=== PATIENT | female | born 2000 | race Caucasian/White ===

== ENCOUNTER 2021-07-26 16:33 | Inpatient (IN) | payer BC ==
[~2021-07-26] VITALS: Ht 165.1 cm; Wt 64.0 kg
[2021-07-26 17:15] LABS: BASOPHILS % (AUTO) 0.4 % (0.0-2.0); EOSINOPHILS % (AUTO) 0.8 % (1.0-6.0); HEMATOCRIT 39.5 % (36-46); HEMOGLOBIN 13.6 g/dL (12.0-16.0); LYMPHOCYTES # (AUTO) 1.9 K/uL (1.0-4.8); LYMPHOCYTES % (AUTO) 29.8 % (22.0-44.0); MEAN CORPUSCULAR HEMOGLOBIN 27.3 pg (26.0-34.0); MEAN CORPUSCULAR HGB CONC 34.3 G/dL (31.0-37.0); MEAN CORPUSCULAR VOLUME 80 fL (80-100); MONOCYTES # (AUTO) 0.4 K/uL (0.1-1.0); MONOCYTES % (AUTO) 5.6 % (2.0-9.0); NEUTROPHILS % (AUTO) 63.4 % (40.0-70.0); PLATELET COUNT (AUTO) 245 K/uL (150-450); RED BLOOD CELL COUNT(AUTO) 4.97 MIL/uL (4.00-5.20); RED CELL DISTRIBUTION WIDTH 13.2 % (11.5-14.5)
[2021-07-26 17:21] LABS: ANION GAP 11 mmol/L (8-16); CALCIUM, TOTAL 9.1 mg/dL (8.8-10.5); CARBON DIOXIDE 24 mmol/L (22-29); CHLORIDE 103 mmol/L (98-107); CREATININE 0.76 mg/dL (0.60-1.30); GLOMERULAR FILTR. RATE CALC > 60 mL/min (>60); GLUCOSE,RANDOM 178 mg/dL (70-110); POTASSIUM 3.9 mmol/L (3.5-5.1); SODIUM SERUM 138 mmol/L (136-145); UREA NITROGEN, BLOOD 9 mg/dL (7-18)
[2021-07-26 17:27] LABS: ALANINE AMINOTRANSFERASE 16 U/L (12-78); ALBUMIN 3.9 g/dL (3.4-5.0); ALKALINE PHOSPHATASE 90 U/L (46-116); ASPARTATE AMINOTRANSFERASE 15 U/L (15-37); BILIRUBIN,TOTAL 0.6 mg/dL (0.1-1.0); TOTAL PROTEIN, SERUM 7.7 g/dL (6.4-8.2)
[2021-07-26] MEDS ORDERED: ZOLPIDEM TARTRATE 10 MG TABLET PO PRN (21:00)
[2021-07-26] MEDS ORDERED: LORazepam 2 MG TABLET PO PRN (21:00)
[2021-07-26] MEDS ORDERED: HALOPERIDOL 5 MG TABLET PO PRN (21:00)
[2021-07-26 21:24] LABS: COVID AG,FIA SOURCE NASAL SWAB
[2021-07-26 22:12] VITALS: BP 143/80
[2021-07-26] MEDS ORDERED: DEXTROSE 50%-WATER 25 GM/50 ML SYRINGE IVP PRN (22:45)
[2021-07-26] MEDS ORDERED: INSULIN LISPRO 100 UNITS/ML SQ PRN (22:45)
[2021-07-26 23:11] LABS: GLUCOMETER DEV NAME(LOC) 3EX.; GLUCOSE,POINT OF CARE 125 MG/DL (70-110)
[2021-07-26 23:11] LABS: GLUCOMETER DEV NAME(LOC) 3EX.; GLUCOSE,POINT OF CARE 65 MG/DL (70-110)
[2021-07-27 06:01] LABS: GLUCOMETER DEV NAME(LOC) 3EX.; GLUCOSE,POINT OF CARE 85 MG/DL (70-110)
[2021-07-27 08:00] VITALS: BP 117/76
[2021-07-27 12:16] LABS: GLUCOMETER DEV NAME(LOC) 3EX.; GLUCOSE,POINT OF CARE 86 MG/DL (70-110)
[2021-07-27 16:00] VITALS: BP 125/72
[2021-07-27 16:46] LABS: GLUCOMETER DEV NAME(LOC) 3EX.; GLUCOSE,POINT OF CARE 75 MG/DL (70-110)
[2021-07-27] MEDS ORDERED: LITHIUM CARBONATE 300 MG CAPSULE PO SCH (17:00)
[2021-07-27] MEDS ORDERED: ALBUTEROL SULFATE HFA 90 MCG/PUFF 8 GM INHALER IH PRN (17:15)
[2021-07-27] MEDS ORDERED: IBUPROFEN 600 MG TABLET PO PRN (17:15)
[2021-07-27] MEDS ORDERED: BACITRACIN 28 GM OINTMENT TP PRN (17:15)
[2021-07-27] MEDS ORDERED: MAG HYDROX/AL HYDROX/SIMETH ES 30 ML SUSPENSION UDCUP PO PRN (17:15)
[2021-07-27] MEDS ORDERED: PETROLATUM,WHITE 28 GM JELLY TP PRN (17:15)
[2021-07-27] MEDS ORDERED: CloNIDine HCL 0.1 MG TABLET PO PRN (17:15)
[2021-07-27] MEDS ORDERED: BENZOCAINE/MENTHOL LOZENGE PO PRN (17:15)
[2021-07-27] MEDS ORDERED: OMEPRAZOLE 20 MG CAPSULE PO PRN (17:15)
[2021-07-27] MEDS ORDERED: MAGNESIUM HYDROXIDE SUSPENSION 30 ML UDCUP PO PRN (17:15)
[2021-07-27] MEDS ORDERED: ONDANSETRON HCL 4 MG TABLET PO PRN (17:15)
[2021-07-27] MEDS ORDERED: DOCUSATE SODIUM 100 MG CAPSULE PO PRN (17:15)
[2021-07-27] MEDS ORDERED: LOPERAMIDE HCL 2 MG CAPSULE PO PRN (17:15)
[2021-07-27] MEDS ORDERED: ACETAMINOPHEN 325 MG TABLET PO PRN (17:15)
[2021-07-28] MEDS ORDERED: MULTIVITAMINS WITH MINERALS, THERAPEUTIC TABLET PO SCH (09:00)
== END 2021-07-27 17:10 | disposition home or self-care (01) | DRG 885 ==
LOC: EMS 16:35 → EDBD 16:35 → 3EI 21:56 → UNDOADMIN 22:43 → 3EI 22:43
PROVIDERS: ADMIT Psychiatry & Neurology Psychiatry; ATTEND Psychiatry & Neurology Psychiatry
DX: F31.9 Bipolar disorder, unspecified (principal); E10.65 Type 1 diabetes mellitus with hyperglycemia; Z20.822 Contact with and (suspected) exposure to COVID-19; F12.10 Cannabis abuse, uncomplicated; F14.90 Cocaine use, unspecified, uncomplicated; F22 Delusional disorders; F41.9 Anxiety disorder, unspecified; G47.00 Insomnia, unspecified; Z79.4 Long term (current) use of insulin
CPT/HCPCS: 80053; 82962; 84703; 85025; 99285; G0480